=== PATIENT | male | born 1960 | race Caucasian/White ===

== ENCOUNTER → 2020-09-13 09:00 | Outpatient (BNVA) | payer MEDICARE, BC, SELFPAY | DX: C61 Malignant neoplasm of prostate (principal); E11.9 Type 2 diabetes mellitus without complications | CPT/HCPCS: 80053; 80061; 83036; 84153; 84154; 84403 ==

== ENCOUNTER → 2021-02-22 09:28 | Outpatient (BNVA) | payer MEDICARE, BC, SELFPAY | PROVIDERS: PCP Family Medicine; Visit Provider Dermatology | DX: C61 Malignant neoplasm of prostate (principal) | CPT/HCPCS: 84153; 84154; 84403 ==

== ENCOUNTER → 2021-09-26 08:51 | Outpatient (BNVA) | payer MEDICARE, BC, SELFPAY | PROVIDERS: PCP Family Medicine | DX: K74.60 Unspecified cirrhosis of liver (principal); C61 Malignant neoplasm of prostate | CPT/HCPCS: 80053; 82105; 84153; 84403; 85025; 85610 ==

== ENCOUNTER → 2022-03-27 09:11 | Outpatient (BNVA) | payer MEDICARE, SELFPAY | PROVIDERS: Family Provider Family Medicine; PCP Family Medicine; Visit Provider Dermatology | DX: C61 Malignant neoplasm of prostate (principal) | CPT/HCPCS: 84153; 84403 ==

== ENCOUNTER → 2022-06-08 08:57 | Outpatient (BNVA) | payer MEDICARE, SELFPAY | PROVIDERS: Family Provider Family Medicine; PCP Family Medicine; Visit Provider Internal Medicine Gastroenterology | DX: K74.60 Unspecified cirrhosis of liver (principal) | CPT/HCPCS: 80053; 82105; 85025; 85610 ==